=== PATIENT | male | born 1970 | race Caucasian/White ===

== ENCOUNTER 2018-12-31 17:19 | Inpatient (IN) ==
--- NOTE | 2018-12-31 17:45 | PROVIDER DOCUMENTATION ---
HPI-General Adult - General Chief Complaint: Chest Pain Stated Complaint: CP-L SHOULDER PAIN, BURNING Time Seen by Provider: 12/31/18 17:42 Source: patient Allergies/Adverse Reactions: Patient Allergies Allergy/AdvReac Type Severity Reaction Status Date / Time No Known Allergies Allergy Verified 10/19/18 19:23 Home Medications: Home Medication List Medication Instructions Recorded Confirmed Last Taken Type Levothyroxine [Synthroid] 50 microgm PO DAILY 05/10/13 09/25/15 09/25/15 History Lisinopril [Zestril] 20 mg PO DAILY 05/10/13 09/25/15 09/25/15 History Hydrocodone/Acetaminophen [[place] 1 each PO Q4-6H PRN PRN #20 tablet 01/02/15 09/25/15 Unknown Rx 7.5-325 Tablet] Albuterol Sulfate Inhaler 2 puff INH Q6H PRN PRN 09/25/15 09/25/15 1 Day Ago History [Ventolin Hfa] ~09/24/15 Fluticasone/Salmet 250/50 INH 1 puff INH RTBID 09/25/15 09/25/15 09/25/15 History [Advair 250/50 Diskus] Albuterol 2.5MG/Ipratrop 0.5MG 3 ml INH Q6H PRN PRN #100 neb 08/09/17 Unknown Rx [Duoneb] Doxycycline 100 mg PO DAILY #20 tablet 08/09/17 Unknown Rx Naproxen [Naprosyn] 500 mg PO BID #20 tab 10/19/18 Unknown Rx - History of Present Illness -Gen Adult Nature of Presenting Problems: 48yo male presents with CC of chest pain. The onset was 4pm today. The patient describes left sided chest pain that moves from his chest to his neck, shoulder, and jaw. The patient does report a hx of chronic shoulder pain, but the current pain is different than previous. The patient reports that the pain is like a burning pain. The pain is improved with walking and worse at rest. The pain is not worse with deep breathing. The patient does report some associated SOB and rates the pain at a 7/10. The patient reports that he has been told he needs to get a stress test, but has not been wanting to do so due to financial issues. The patient is a smoker. Location of Pain/Injury: reports: chest Pain Radiation: reports: jaw, neck, shoulder(s) Quality of Pain: reports: burning Onset/Duration: reports: 1-3 hours ago Timing: reports: still present Context/Activities at Onset: reports: none Modifying Factors: improves with: movement (improves) Associated Symptoms: reports: shortness of breath. denies: fever/chills Review of Systems - Adult - REVIEW OF SYSTEMS - ADULT Constitutional: reports: night sweats. denies: fever Eyes: reports: no symptoms reported. denies: eye pain Ears, Nose, Mouth & Throat: reports: other (Jaw pain) Cardiovascular: reports: chest pain. denies: edema Respiratory: reports: cough, shortness of breath Gastrointestinal: reports: nausea. denies: abdominal pain, diarrhea, vomiting Genitourinary: reports: no symptoms reported. denies: flank pain Musculoskeletal: reports: joint pain (shoulder) Integumentary: reports: no symptoms reported Neurological: reports: numbness (occasional in the arms) Psychiatric: reports: anxiety, depression Endocrine: reports: no symptoms reported Hematologic/Lymphatic: reports: no symptoms reported, other (no bleeding) Allergic/Immunologic: reports: no symptoms reported, other (no swelling) Past History - Adult - PAST MEDICAL HISTORY-ADULT Review of Records: reports: Old Records Reviewed Major Childhood Illnesses: reports: denies history Cardiovascular: reports: HTN, hyperlipidemia Respiratory: reports: COPD Gastrointestinal: reports: denies history Obstetrical/Gynecological: reports: denies history Genitourinary: reports: denies history Musculoskeletal: reports: denies history Neurological: reports: denies history Endocrine/Immune: reports: thyroid disorder Other Conditions: reports: denies history - PRIOR SURGERIES/PROCEDURES Surgical/Procedure History: reports: other (trauma to chest in past) - PRIOR HOSPITALIZATIONS Prior Hospitalizations: reports: none - IMMUNIZATION STATUS Childhood Immunizations: See Nurse Assessment Flu Vaccine: See Nurse Assessment - FAMILY HISTORY Family History: CAD under 55yo - SOCIAL HISTORY Smoking: cigarettes, greater than 1 pack/day Provider spent 3-5 mins advising pt. on dangers of tobacco.: Recomended cessation Substance Use: alcohol Alcohol Use Frequency: occasionally Physical Exam-General - PHYSICAL EXAM-ADULT Initial Vital Signs Reviewed: Yes - CONSTITUTIONAL General Appearance: appears well, alert, no apparent distress - EYES Eyes: negative: conjuctival exudate, photophobia, scleral icterus - HEAD, EARS, NOSE, MOUTH & THROAT HENMT: normocephalic/atraumatic, moist mucous membranes - NECK Neck: normal inspection - RESPIRATORY Respiratory: lungs clear, decreased breath sounds (at bases), crackles (very faint), wheezing (very faint) - CARDIOVASCULAR Cardiovascular: regular rate, rhythm, no edema - GASTROINTESTINAL (ABDOMEN) Abdominal Exam: non tender, soft - MUSCULOSKELETAL Extremity: non-tender - SKIN Integumentary: normal color, warm/dry - NEUROLOGIC Neurologic: grossly normal - PSYCHIATRIC Psych/Mental Status: normal mood/affect, normal thought content, normal thought process Progress - PLAN OF CARE/RESULTS Progress/Plan/Lab Results: Vital Signs - 8 hr 12/31/18 17:26 Temperature 97.8 F Pulse Rate 88 Respiratory Rate 18 Blood Pressure 108/62 O2 Sat by Pulse Oximetry 95 Orders Category Date Time Status Cardiac Monitoring DIRECTED Care 12/31/18 17:43 Ordered Oxygen Therapy- ED Nursing DIRECTED Care 12/31/18 17:43 Ordered Saline Loc NOW Care 12/31/18 17:43 Ordered CHEST-2 VIEWS [RAD] Stat Exams 12/31/18 17:43 Ordered CBC WITH ELECTRONIC DIFF [HEME] Stat Lab 12/31/18 17:43 Uncollected CK PROFILE [SP CHEM] Stat Lab 12/31/18 17:43 Uncollected COMPREHENSIVE METABOLIC PANEL [CHEM] Stat Lab 12/31/18 17:43 Uncollected PRO B-NATRIURETIC PEPTIDE Stat Lab 12/31/18 17:43 Uncollected PROTIME WITH INR [COAG] Stat Lab 12/31/18 17:43 Uncollected PTT [COAG] Stat Lab 12/31/18 17:43 Uncollected TROPONIN T Stat Lab 12/31/18 17:43 Uncollected CP/SOB/Palp >45 yrs of Age Stat Oth 12/31/18 17:43 Ordered EKG [EKG] Stat Ther 12/31/18 17:43 Ordered Result Diagrams: 12/31/18 17:58 12/31/18 17:58 - REASSESSMENT Reassessment #1 Time Reassessed: 19:20 Status: other (Given patient new chest pain and Heart Score of 5 will admit to the hosptialist team for chest pain observation and possible stress testing. Patient given nitro for chest pain and will need continued BP monitoring. This was discussed with the patient who was agreeable to this. Discussed case with the hosptialist team who has accepted the patient.) Departure - Departure Date of Disposition Decision: 12/31/18 Time of Disposition Decision: 19:21 DIAGNOSIS: Chest pain Qualifiers: Chest pain type: unspecified Qualified Code(s): R07.9 - Chest pain, unspecified Disposition: ADMITTED INPATIENT 09 Certified Medical Emergency: Emergent Condition: Fair Referrals and Follow-Ups: None,PCP [Primary Care Provider] - - Critical Care Note This patient required my direct & personal management of CC.: No Attestation - Physician/ LAST Attestation Patient care was provided by Advanced Practice Provider:: No The physician spent face to face time with patient:: Yes Advanced Practice Provider documentation review:: Supervising physician onsite and consulted in the evaluation and care of this patient. The physician did have a face to face encounter with the patient. - HEART Score HEART Score: History: Moderately Suspicious HEART Score: ECG: Non-Specific Repolarization Disturbance/LBBB/PM HEART Score: Age: 45-65 Years HEART Score: Risk Factors for Atherosclerotic Disease: > or = 3 Risk Factors or History of Atherosclerotic Disease HEART Score: Troponin: < or = Normal Limit Total HEART Score:: 5
[2018-12-31] MEDS ORDERED: ASPIRIN PO ONE (18:11)
--- NOTE | 2018-12-31 18:13 | EKG Report ---
Test Performed on : 12/31/2018 5:26:23 PM Test Reason : CC Blood Pressure : / mmHG Vent. Rate : 087 BPM Atrial Rate : 087 BPM P-R Int : 132 ms QRS Dur : 094 ms QT Int : 368 ms P-R-T Axes : 060 074 066 degrees QTc Int : 442 ms Normal sinus rhythm. Nonspecific ST abnormality Abnormal ECG When compared with ECG of 12-MAY-2016 17:51, No significant change was found Unconfirmed Result
[2018-12-31 18:20] LABS: BASO# 0.06 X1000 (0.0-0.2); BASO% 0.6 % (0.0-0.8); EOS# 0.28 X1000 (0.0-0.7); HEMATOCRIT 43.2 % (42.0-52.0); HEMOGLOBIN 15.3 g/dL (14.0-18.0); IMM GRAN# 0.03 X1000 (0.0-0.04); IMM GRAN% 0.3 % (0.0-0.5); LYMPH% 44.4 % (20.5-51.1); MCH 30.8 PG (27-31); MCHC 35.4 g/dL (33-37); MCV 87.1 FL (81-99); MONO# 0.64 X1000 (0.11-0.59); MONO% 6.8 % (1.7-9.3); MPV 9.8 FL (7.4-10.4); NEUT# 4.24 X1000 (1.4-6.5); NEUT% 44.9 % (42.2-75.2); PLT 206 X1000 (130-400); RBC 4.96 XMIL (4.7-6.1); RDW 12.2 % (11.5-14.5); WBC 9.45 X1000 (4.8-10.8)
[2018-12-31 18:23] LABS: INR 0.95; PROTIME 12.7 Seconds (11.0-16.0)
[2018-12-31 18:24] LABS: PTT 24.9 Seconds (22.3-41.8)
[2018-12-31 18:41] LABS: AGAP 20; ALBUMIN 4.9 g/dL (3.5-5.0); ALKALINE PHOSPHATASE 63 U/L (32-122); BUN 16 mg/dL (8-22); CALCIUM 9.9 mg/dL (8.8-10.2); CHLORIDE 95 mmol/L (98-107); CK PROFILE 112 U/L (24-204); COSMO 273; CREATININE 1.1 mg/dL (0.7-1.2); ESTIMATED GFR > 60; GLUCOSE 97 mg/dL (70-104); GOT 22 U/L (10-34); GPT 33 U/L (10-44); POTASSIUM 3.6 mmol/L (3.5-5.1); SODIUM 136 mmol/L (136-145); TCO2 21 mmol/L (25-35); TOTAL PROTEIN 7.3 g/dL (6.3-8.3)
[2018-12-31] MEDS ORDERED: NITROGLYCERIN TOP ONE (19:05)
--- NOTE | 2018-12-31 19:13 | Diag Imaging Result Doc PS360 ---
CHEST-2 VIEWS - 12/31/2018 INDICATION: chest pain COMPARISON: 08/09/2017 FINDINGS: There is some stable linear scarring in the lateral left costophrenic angle. No infiltrates. Heart size and pulmonary vascularity is normal. No pneumothorax or pleural effusion. IMPRESSION: No acute disease or change from prior. Electronically signed by Zachery Martel 12/31/2018 7:11 PM
[2018-12-31] MEDS ORDERED: G.I. COCKTAIL PO ONE (19:38)
--- NOTE | 2018-12-31 20:42 | HISTORY AND PHYSICAL ---
PRIMARY CARE PHYSICIAN: None. REASON FOR ADMISSION: Worsening chest pain today. HISTORY OF PRESENT ILLNESS: Mr. Augustus Solano is a 48-year-old male with past medical history of COPD and hypertension. He reports that three weeks ago, he sustained an injury to his left shoulder, seen in the ER and sent home. He says the pain in his left shoulder has persisted since then and has been getting better for the most part. At about 4 p.m., when he awakened from a nap, he noticed that the pain in his left shoulder was worse, but not only that, he had developed left precordial chest pain radiating to his neck and jaw. He tried to get up to walk to get him someone from the kitchen, which is estimated about 15 feet. He became profoundly short of breath. He said he does have a longstanding history of chronic dyspnea from COPD, but he said it has never been this bad. This prompted him to seek care in our facility. He denies any diaphoresis, palpitations with this, nausea or any presyncopal spell. He denies any antecedent complaints of leg swelling or extremity redness or pain. No PND, orthopnea. REVIEW OF SYSTEMS: Patient reports that he has a chronic cough, which initially started as a chronic cough which is occasionally productive. Recently, he says the phlegm has become brown. He has a long-standing history of night sweats, but no fever or chills. No focal neurological complaints. No GI or complaints. He denies any pleuritic chest pain. He denies any weight loss. ALLERGIES: None. MEDICATIONS: He uses inhalers, but cannot remember what type. SURGICAL HISTORY: None. SOCIAL HISTORY: Smokes two packs a day. No alcohol or drug use. FAMILY HISTORY: Notable for heart disease in his dad, at the age of 52 an [place], and possible type 2 diabetes. LABORATORY AND DIAGNOSTIC DATA: His EKG shows normal sinus rhythm. No gross ST wave changes concerning for ischemia or injury pattern. White count 9000, hemoglobin and hematocrit 15 and 42, platelets 206,000. Potassium 3.6, BUN 16, creatinine 1.1. Troponin is negative. PTT is normal. ProBNP is 13. Chest film, no acute disease noted. PHYSICAL EXAMINATION: GENERAL: A middle-aged, man, who is alert and oriented to time. Normal mood and affect. VITAL SIGNS: Blood pressure 108/62, heart rate is 88, respiratory rate is 18, temperature is 97.8. HEAD: Normocephalic, atraumatic. EYES: PERRL, EOMI. Conjunctivae not pale. ENT: Oropharyngeal exam is normal. No central cyanosis. NECK: Supple. No JVD or carotid bruit. CHEST: Decreased air entry in both lung mccloud with scattered expiratory wheezes. CARDIOVASCULAR: First and second heart sounds are heard. Soft ejection 2/6 murmur heard radiating to the neck. Rhythm is regular. ABDOMEN: Protuberant, soft, nontender. No hepatosplenomegaly. Bowel sounds are normal. RECTAL: Deferred at this time. EXTREMITIES: Patient has good distal pulse volumes. Regular, symmetrical. No edema, clubbing, or peripheral cyanosis. NEUROLOGICAL: No gross focal deficits. SKIN: Intact. No breakdown, lesion, or erythema. MUSCULOSKELETAL: Grossly normal. ASSESSMENT: 1. Chest pain. Cannot rule out unstable angina. 2. Hypertension. 3. Hyperlipidemia. 4. Chronic obstructive pulmonary disease. 5. Tobacco use. PLAN: We will start patient on aspirin, Lovenox, [id number] dose potent statins. Consult Cardiology in the a.m. I will do serial troponins. 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 A1c and lipid panel were ordered and these need to be followed. The patient will be started on short-acting bronchodilators in the interim. Patient has a heart score of 5 and he is at [id number] risk of having coronary artery disease based on his smoking, risk factors, and strong family history. cc: Jose R Bullock MD
[2018-12-31] MEDS ORDERED: LIPITOR PO SCH (21:30)
[2018-12-31] MEDS ORDERED: TYLENOL PO PRN (21:30)
[2018-12-31] MEDS ORDERED: ZOFRAN IV PRN (21:30)
[2018-12-31] MEDS ORDERED: LOVENOX SUBQ ONE (21:30)
[2018-12-31] MEDS ORDERED: MORPHINE IV PRN (21:30)
--- NOTE | 2018-12-31 21:30 | Diag Imaging Result Doc PS360 ---
CT THORAX W/O CONTRAST - 12/31/2018 INDICATION: night sweat productive cough COMPARISON: Previous chest x-ray FINDINGS: There is no adenopathy. Heart and great vessels are normal. Upper abdominal images are normal. There are some scattered linear atelectasis or scarring in the lung bases bilaterally. No infiltrates. Airways are clear. Bones are intact and well mineralized. IMPRESSION: Scattered linear atelectasis in the lung bases. No acute disease. This exam was performed using automated exposure control, adjustment of mA or kV according to patient size, and/or use of iterative reconstruction technique Electronically signed by Zachery Martel 12/31/2018 9:27 PM
[2018-12-31] MEDS: DUONEB (A & A) INH SCH (23:14)
[2019-01-01] MEDS: DUONEB (A & A) INH SCH ×3 (03:23→17:15)
[2019-01-01 04:07] LABS: HEMOGLOBIN A1C 5.5 % (4.8-6.0)
[2019-01-01 04:28] LABS: AGAP 15; ALB/GLOB RATIO 2.1; ALBUMIN 4.8 g/dL (3.5-5.0); ALKALINE PHOSPHATASE 60 U/L (32-122); BUN 16 mg/dL (8-22); CALCIUM 9.5 mg/dL (8.8-10.2); CHLORIDE 100 mmol/L (98-107); CHOLESTEROL 147 mg/dL (0-200); COSMO 279; ESTIMATED GFR > 60; GLUCOSE 104 mg/dL (70-104); GOT 19 U/L (10-34); GPT 32 U/L (10-44); HDL 45 mg/dL (35-55); LDL 77 mg/dL; POTASSIUM 4.3 mmol/L (3.5-5.1); SODIUM 139 mmol/L (136-145); TCO2 24 mmol/L (25-35); TOTAL PROTEIN 7.1 g/dL (6.3-8.3); TRIGLYCERIDES 126 mg/dL (39-160); VLDL 25 mg/dL
[2019-01-01] MEDS ORDERED: PRILOSEC PO SCH (07:00)
--- NOTE | 2019-01-01 07:29 | EKG Report ---
Test Performed on : 01/01/2019 06:34:02 AM Test Reason : CP Blood Pressure : / mmHG Vent. Rate : 075 BPM Atrial Rate : 075 BPM P-R Int : 150 ms QRS Dur : 094 ms QT Int : 376 ms P-R-T Axes : 051 064 040 degrees QTc Int : 419 ms Normal sinus rhythm. Normal ECG When compared with ECG of 31-DEC-2018 17:26, (Unconfirmed) No significant change was found Unconfirmed Result
[2019-01-01] MEDS ORDERED: ASPIRIN PO SCH (09:00)
[2019-01-01 11:32] VITALS: BP 139/87
--- NOTE | 2019-01-01 14:07 | ECHO REPORT ---
ORDER DATE: 01/01/2019 INTERPRETING PHYSICIAN: Dr. Reese Merlos. ECHOCARDIOGRAPHIC MEASUREMENTS: 1. Interventricular septum: 0.9 cm. 2. Left ventricular posterior wall: 0.9 cm. 3. Diastolic diameter: 4.8 cm. 4. Left atrium: 3 cm. 5. Aorta: 3.2 cm. SUMMARY OF THE 2-DIMENSIONAL IMAGIN. Aortic valve leaflets were trileaflet. 2. Tricuspid valve was normal. 3. There is systolic anterior motion of the tip of the mitral valve leaflets. 4. Peak velocity across the aortic valve less than 2 m/sec by Doppler studies. There is no aortic stenosis or regurgitation. 5. There is mild tricuspid regurgitation. Peak velocity across the tricuspid valve was 2.1 m/sec. 6. Normal left ventricular cavity size. Estimated ejection fraction of 70%. 7. There is mild mitral regurgitation. 8. There is no pericardial effusion or obvious intracardiac mass or thrombus seen. cc: MD Jose R Ontiveros MD
[2019-01-01] MEDS ORDERED: LEXISCAN ONE (14:33)
--- NOTE | 2019-01-01 16:34 | Diag Imaging Result Document ---
PROCEDURE NAME: MYOCARDIAL PERF SCAN, STR/REST - 01/01/2019 PROCEDURE: Lexiscan Cardiolite stress. DESCRIPTION OF PROCEDURE: Lexiscan was infused per standard protocol. There was no chest pain. There was shortness of breath. Stress electrocardiogram was negative for ischemia. Following Lexiscan infusion, Cardiolite was injected. Total of 12.6 mCi of Cardiolite was injected for the rest phase; 35.2 mCi of Cardiolite was injected for the stress phase. Images revealed normal left ventricular cavity size. There is diaphragmatic and chest wall attenuation. There is low-grade fixed defect in the base of the inferior wall suggestive of attenuation defect. There is no evidence of ischemia. Left ventricular ejection fraction by gated SPECT was 74%. CONCLUSIONS: 1. No chest pain. 2. Negative Lexiscan stress electrocardiogram. 3. Myocardial perfusion images revealed no evidence of ischemia. 4. There is low-grade, small-sized fixed defect in the base of the inferior wall suggestive of attenuation defect. 5. Left ventricular ejection fraction 74%. cc: MD Antoinette Ontiveros PA
[2019-01-01] MEDS ORDERED: FLU VACCINE IM ONE (17:38)
[2019-01-01] MEDS ORDERED: PNEUMOVAX 23 IM ONE (17:41)
--- NOTE | 2019-01-01 21:38 | CARDIOLOGY CONSULTATION ---
DATE: 01/01/2019 CONSULTATION REQUESTED BY: Hospitalist Service. REASON FOR CONSULTATION: Chest pain. HISTORY: Mr. Solano presented to the emergency room yesterday, on December 31 at about 5 p.m., with complaints of sudden onset of chest discomfort that was associated with a left shoulder pain that initially hit him and then it just kept on getting worse. He says that he has not experienced pain like this in the past. The patient reported also pain in the left side of the jaw. Because this was intense and he had never experienced it before, he decided to come into the ER. They did a chest x-ray that shows no acute disease. They did a chest CT that shows scatter linear atelectasis in the lung bases. EKG showed no acute changes. They have done several troponin levels, a total of 4, all of them negative. ProBNP is normal. A cholesterol panel shows a total cholesterol 147, LDL 77, HDL 45, triglycerides 126. The patient has been advised to stay for testing. PAST HISTORY: Positive for hypertension. He has COPD. SURGICAL HISTORY: Negative. He says that he fell and injured his shoulder about 3 months ago, and since then, he has been having trouble with it. SOCIAL HISTORY: He is single. He has 2 grownup children. He is applying for disability. He smokes 1-1/2 packs of cigarettes a day for more than 20 years. He has also been drinking some alcohol. FAMILY HISTORY: Father had myocardial infarction at a young age. He goes to the clinic in [place]. HOME MEDICATIONS: Albuterol inhaler, amitriptyline 10 mg at bedtime, fluticasone twice a day, gabapentin 100 mg 3 times a day, levothyroxine 50 mcg daily, lisinopril/hydrochlorothiazide 20/12.5 one-half daily, simvastatin 40 mg at bedtime. REVIEW OF SYSTEMS: Other than the recurrent left shoulder pain since the accident that he had 3 months ago, it is really noncontributory. He has gained weight since he was put on thyroid medicine. He says that he used to weigh 135 pounds, now he is up to 170. No other positives. PHYSICAL EXAMINATION: Blood pressure is 138/81, pulse 77, respirations 18, temperature 98.2 degrees, He is awake, alert, oriented, in no distress.HEENT: Unremarkable. Chest: Diminished breath sounds diffusely with some rhonchi. Heart sounds regular and rhythmic. No gallop or murmur. Abdomen: Soft, nontender. No masses. No hepatomegaly. Extremities: Good pulses. No peripheral edema. Neurological: Nonfocal. Moves all 4 extremities. LABORATORY DATA: His chemistry panel today is basically normal. Liver function test is normal. ProBNP level is normal. IMPRESSION: 1. A patient who presented with very atypical discomfort in the chest. More than likely noncardiac. 2. He does have some chronic dyspnea and physical findings consistent with chronic obstructive pulmonary disease. 3. Hypertension. 4. Hypothyroidism. 5. Hyperlipidemia. 6. s/p left shoulder injury. RECOMMENDATIONS: At this time, the patient has already received a 2D echocardiogram that has been reported by Dr. Merlos indicating normal left ventricular ejection fraction, normal valvular structures. His nuclear myocardial perfusion stress test has already been completed, and I have looked at the images. He has normal appearance of his myocardial perfusion. His ejection fraction is also normal with normal rise from rest to stress. Resting ejection fraction is 74%, and pulse at rest is 89%. That is normal. Of note, the CT scan of his chest showed no evidence of any significant degree of coronary calcification, with a trivial bit of calcium, but nothing really remarkable. The most salient feature of his CT of the chest is the presence of COPD. The patient is basically without any indication of any active coronary obstruction. He does not have an unstable coronary syndrome. He can be discharged home with instructions to abstain from smoking, to follow a healthy lifestyle, and follow up with his primary care provider. There is no need for cardiology followup, unless the primary care provider recommends that because of the change in status. cc: Augusto Dalton MD [facility]
== END 2019-01-01 18:15 | disposition home or self-care (01) | DRG 313 ==
LOC: 2N 17:19 → ED 17:19 → OBSVTOIN 20:30 → SUATTDRO 20:30
PROVIDERS: ATTEND Internal Medicine